=== PATIENT | male | born 1980 | race Two or more races ===

== ENCOUNTER 2020-11-11 19:06 | Emergency (ER) | payer MEDICAID, OTHER ==
[~2020-11-11] VITALS: Ht 182.9 cm; Wt 56.7 kg
[2020-11-11 20:25] VITALS: BP 127/80
[2020-11-11] MEDS: KETOROLAC TROMETH 60MG/2ML VIAL IM ONE (21:20)
[2020-11-11] MEDS: NEOMYCIN-BACITRACIN-POLYM UNITDOSE PKG TOP OINT TOP ONE (21:53)
== END 2020-11-11 22:25 | disposition home or self-care (01) ==
LOC: ER 19:06 → EDBD 19:06 → ER 22:25
DX: S52.615A Nondisplaced fracture of left ulna styloid process, initial encounter for closed fracture (principal); S60.511A Abrasion of right hand, initial encounter; V43.52XA Car driver injured in collision with other type car in traffic accident, initial encounter; Y93.89 Activity, other specified; Y92.89 Other specified places as the place of occurrence of the external cause; Y99.8 Other external cause status
CPT/HCPCS: 71250; 73100; 74176; 96372; 99285; J1885

== ENCOUNTER 2020-11-12 19:22 | Emergency (ER) | payer MEDICAID ==
[~2020-11-12] VITALS: Ht 182.9 cm; Wt 123.4 kg
[2020-11-12 22:50] VITALS: BP 132/88
== END 2020-11-12 23:51 | disposition home or self-care (01) ==
LOC: ER 19:22
DX: S60.511A Abrasion of right hand, initial encounter (principal); V43.52XA Car driver injured in collision with other type car in traffic accident, initial encounter; Y93.89 Activity, other specified; Y92.89 Other specified places as the place of occurrence of the external cause; Y99.8 Other external cause status
CPT/HCPCS: 73130